=== PATIENT | female | born 1975 | race Caucasian/White ===

== ENCOUNTER → 2018-02-24 | Outpatient (REF) ==
[2014-09-20 09:30] VITALS: BMI 36.5
[~2018-02-24] MED LIST: DIPH0.5D12 IM; IBUP800T37 PO; LEVO137T22 PO; PER PO; PREN-127 PO
[2018-02-24 10:32] LABS: LDL CHOLESTEROL 150 mg/dl
== END ==
DX: Z02.9 Encounter for administrative examinations, unspecified (principal)

== ENCOUNTER → 2018-03-16 | Outpatient (CLI) | payer OTHER ==
[2014-09-20 09:30] VITALS: BMI 36.5
--- NOTE | 2018-03-16 09:40 | RADIOLOGY IMAGING REPORT ---
FACILITY: [facility] - [place], [place] PATIENT NAME: Liliana Odell : 1975 MR: [id number] V: [id number] EXAM DATE: ORDERING PHYSICIAN: MADI RANGEL TECHNOLOGIST: Location: [facility] Patient: Liliana Odell : 1975 Visit/Account:[id number] Date of Sevice: 03/16/2018 Exam type: OB LIMITED History: Follow up pyelectasis, Growth and SUNNY check Comparison: None available at this time. Findings: There is a single fetus in vertex presentation. The placenta is posterior with no evidence of a placenta previa. Amniotic fluid index is 27.1 cm. The MVP is 8.3 cm heart rate 149 bpm. Fluid is identified in the renal pelvic calyceal systems bilaterally. The renal pelvis measures 6.4 mm on the right and 6.1 mm on the left. The biparietal diameter measures 8.03 cm consistent with a gestational age of 32 weeks and two days a nd is in the 45th percentile Head circumference measures 29.03 cm consistent with 32 weeks and zero days and is in the 12th percen tile Abdominal circumference measures 29.2 cm consistent with 33 weeks and two days and is in the 70th per centile Femur length measures 6.5 cm consistent with 33 weeks and four days ends in the 74th percentile Estimated weight is 2109 g +/- 308 g Estimated gestational age: AUA: 32 weeks and six days Estimated gestational age by last menstrual period: 32 weeks and one day. This is in the 69th percen tile IMPRESSION: 1. Single viable fetus in vertex presentation with an estimated gestational age by measurements of 3 2 weeks and six days. Estimated weight 2109 g There is polyhydramnios with an SUNNY of 27.1 cm in MVP 8.3 cm Fluid is identified in the renal pelvic calyceal systems bilaterally. The right renal pelvis measure s 6.4 mm in diameter. The left renal pelvis measures 6.1 mm in diameter. There are no prior studies currently available to me for comparison Report Dictated By: Nisa Arizmendi MD at 03/16/2018 9:21 AM Report E-Signed By: Nisa Arizmendi MD at 03/16/2018 9:35 AM WSN:[email or web address]
== END ==
LOC: RAD 07:56
PROVIDERS: ATTEND Obstetrics & Gynecology
DX: Z02.9 Encounter for administrative examinations, unspecified (principal)
CPT/HCPCS: 76815

== ENCOUNTER → 2018-04-03 | Outpatient (CLI) | payer OTHER ==
[2014-09-20 09:30] VITALS: BMI 36.5
--- NOTE | 2018-04-03 09:22 | RADIOLOGY IMAGING REPORT ---
FACILITY: [facility] [place]IENT NAME: Liliana Odell : 1975 MR: [id number] V: [id number] EXAM DATE: ORDERING PHYSICIAN: MADI RANGEL TECHNOLOGIST: Location: [facility] [place] Patient: Liliana Odell : 1975 Visit/Account:[id number] Date of Sevice: 04/03/2018 Exam type: OB LIMITED History: Polyhydramnios and third trimester, recheck SUNNY Comparison: March 16, 2018. Findings: There is a single fetus in variable presentation however on the provided images the fetus was in ceph alic presentation. . Detailed anatomy was not evaluated. The estimated gestational age by las t menstrual period is 34 weeks and five days The placenta is posterior. heart rate 133 bpm SUNNY measured 26.8 cm. The MVP 7.5 cm There is pyelocaliectasis of the renal collecting systems again noted. The left renal pelvis measure s 7.7 mm in diameter, the right renal pelvis measures 9.5 mm in diameter. Fluid is noted within the bladder. IMPRESSION: 1. Again noted is polyhydramnios with an SUNNY of 26.8 cm in MVP at 7.5 cm There is pelvocaliectasis of the renal collecting systems again noted. The left renal pelvis measure s 7.7 mm in diameter and the right renal pelvis measures 9.5 mm in diameter Report Dictated By: Nisa Arizmendi MD at 04/03/2018 9:04 AM Report E-Signed By: Nisa Arizmendi MD at 04/03/2018 9:18 AM WSN:[email or web address]
== END ==
LOC: US 01:49
PROVIDERS: ATTEND Obstetrics & Gynecology
DX: O40.3XX0 Polyhydramnios, third trimester, not applicable or unspecified (principal)
CPT/HCPCS: 76815

== ENCOUNTER → 2018-04-10 | Outpatient (CLI) | payer OTHER ==
[2014-09-20 09:30] VITALS: BMI 36.5
== END ==
LOC: LAB 08:49
PROVIDERS: ATTEND Obstetrics & Gynecology
DX: O09.523 Supervision of elderly multigravida, third trimester (principal)
CPT/HCPCS: 87081

== ENCOUNTER → 2018-04-17 | Outpatient (CLI) | payer OTHER ==
[2014-09-20 09:30] VITALS: BMI 36.5
--- NOTE | 2018-04-18 01:55 | RADIOLOGY IMAGING REPORT ---
FACILITY: [facility] - [place] PATIENT NAME: Liliana Odell : 1975 MR: [id number] V: [id number] EXAM DATE: ORDERING PHYSICIAN: MADI RANGEL TECHNOLOGIST: Location: [facility] Patient: Liliana Odell : 1975 Visit/Account:[id number] Date of Sevice: 04/17/2018 EXAMINATION: LIMITED OB ULTRASOUND DATE: 04/17/2018 10:56 AM. INDICATION: Evaluate SUNNY and EFW. COMPARISON: 03/04/2018. TECHNIQUE: Grayscale, color Doppler and M-mode ultrasound images of the fetus and maternal organs wer e obtained. FINDINGS: Estimated date of delivery: 05/10/2018. Age by dates: 36 weeks, 5 days Number of fetuses: 1 position: Vertex Placental location: Posterior, no previa. Amniotic fluid volume: The maximum vertical pocket measures 8.4 cm and the SUNNY is 26.9 cm. Biometry as follows: Biparietal diameter: 8.64 cm 34 weeks, 6 days Head circumference: 32.24 cm 36 weeks, 3 days Abdominal circumference: 32.87 cm 36 weeks, 6 days Femur length: 7.12 cm 36 weeks, 4 days Average age by ultrasound: 36 weeks, 2 days Estimated weight: 2940 gm weight percentile: 47th %tile ANATOMY Full anatomic survey was not performed. There is persistent pelvicaliectasis, measuring 8 mm o n the right and 7 mm on the left. heart rate is 133 BPM. IMPRESSION: 1. Single intrauterine gestation with average ultrasound age of 36 weeks 2 days, corresponding to ge stational age by LMP, which is 36 weeks 5 days. Estimated weight is in the 47th %tile. 2. Persistent polyhydramnios. The maximum vertical pocket measures 8.4 cm and the SUNNY is 26.9 cm. 3. Persistent pelvicaliectasis, measuring 8 mm on the right and 7 mm on the left. Report Dictated By: Christiano Torrez MD at 04/18/2018 1:44 AM Report E-Signed By: Christiano Torrez MD at 04/18/2018 1:52 AM WSN:[id number]
== END ==
LOC: RAD 10:46
PROVIDERS: ATTEND Obstetrics & Gynecology
DX: Z02.9 Encounter for administrative examinations, unspecified (principal)

== ENCOUNTER 2018-05-03 05:28 | Inpatient (IN) | payer OTHER ==
[~2018-05-03] VITALS: Ht 154.9 cm; Wt 83.5 kg
[2018-05-03] VITALS (18 sets, daily range): BP systolic 104–141; BP diastolic 52–87; Ht 154.9 cm; Wt 83.5 kg
[2018-05-03] MEDS ORDERED: ceFAZolin(*) 2GM/D5W 50ML 50 ML IVPB ONE (05:29)
[2018-05-03] MEDS ORDERED: METOCLOPRAMIDE 10 MG/2 ML SDV IVP ONE (05:30)
[2018-05-03] MEDS ORDERED: FAMOTIDINE 20 MG/50 ML PREMIX IVPB ONE (05:30)
[2018-05-03] MEDS: LR(*) 1000 ML BAG 1,000 ML IV SCH ×2 (06:14→06:54)
[2018-05-03 06:26] LABS: PLATELET COUNT, AUTOMATED 214 K/uL (150-450)
--- NOTE | 2018-05-03 06:51 | History & Physical ---
History of Present Illness EDC per LMP: May 10, 2018 Estimated Gestational Age: 39 Chief Complaint Scheduled delivery History of Present Illness 43yo at 39w0d presents for scheduled repeat CD. She reports FM. No UCx, VB, LOF. No preeclampsia symptoms. PNC c/b AMA, hx CD, polyhydramnios, pyelectasis and hypothyroid. PNC by [facility]. record reviewed. History Patient's Blood Type: O Positive Rubella Status: Immune Group B Strep Screen: Negative Obstetrical History: Hx CD x 1 Past Medical History: PMH: Hypothyroid PSH: Allergies: Coded Allergies: No Known Drug Allergies (Unverified , 02/14/18) Social History: No T/E/D. . Family History: FH: congestive heart failure MOTHER FH: hypertension FATHER FH: thyroid condition MOTHER Med Rec Home Meds Reported Medications Vits W-Ca,Fe,Fa(<1MG) ( VITAMINS) 1 Each Tablet, 1 EACH PO DAILY, TAB 01/26/18 Levothyroxine Sodium (SYNTHROID) 137 Mcg Tablet, 137 MCG PO QDAY 01/26/18 Review of Systems Constitutional: No Fever Neurological: No Syncope Cardiovascular: No Chest Pain Respiratory: No Shortness of Breath, No Cough Gastrointestinal: No Nausea, No Vomiting, No Diarrhea Genitourinary: No Dysuria Psychiatric: No Depression, No Anxiety Exam General Exam Vital Signs VS reviewed General Apperance: Alert/Awake/No Acute Distress Neuro: No Gross deficits Cardiovascular: Regular Rate and Rhythm Respiratory: No Respiratory Distress, Clear to Auscultation Abdomen: Gravid - Non-Tender Musculoskeletal: No Weakness/Pain Extremities: No Cyanosis,Clubbing or Edema Integumentary: Skin Intact without Lesions or Rash Psychological: Alert & Oriented X3, Appropriate Mood & Affect Fetus FHT Category: I Medical Decision Making Data Points Result Diagram: 05/03/18 0609 Pre-Admit Course Medical Record Review: Yes VTE Prophylasis: Adult Pharmacological Contraindicati: Surgical Contraindication Mechanical Contraindications: Surgical Contraindication Assessment and Plan Problems: (1) History of delivery affecting Assessment & Plan: Plan for repeat CD as scheduled. Discussed R/B/A. Proceed with preop Ancef. (2) Pyelectasis of fetus on ultrasound Assessment & Plan: Notify pediatrics for ultrasound results. (3) Advanced maternal age (AMA), 40 years or greater Assessment & Plan: Negative [id number] and reassuring anatomical ultrasound. (4) Hypothyroidism affecting Assessment & Plan: Continue synthroid. Problem Qualifiers (1) Hypothyroidism affecting : Trimester: third trimester Qualified Codes: O99.283 - Endocrine, nutritional and metabolic diseases complicating , third trimester; E03.9 - Hypothyroidism, unspecified MADI RANGEL MD May 03, 2018 06:51
[2018-05-03] MEDS ORDERED: ONDANSETRON 4 MG/2 ML VIAL ONE (06:57)
[2018-05-03] MEDS ORDERED: KETOROLAC 30 MG/ML VIAL ONE (06:57)
[2018-05-03] MEDS ORDERED: OXYTOCIN 10 UNIT/ML SDV ONE (06:57)
--- NOTE | 2018-05-03 06:57 | Anesthesia OB Pre-Anes Eval ---
History of Present Illness Anesthesia Start Date: May 03, 2018 Anesthesia Start Time: 07:15 OB Anesthesia Diagnosis: repeat c/section Complications: None known EDC: May 10, 2018 : 3 Para: 1 Pain Ratin Result Diagram: 05/03/18 0609 Height (Inches): 61.00 Weight (Pounds): 184 BMI Calculated: 34.76 Past Medical History Medical History: no pertinent history Surgical History: Previous Anesthesia: epidural Attended Childbirth Classes?: No Hx Anesthesia Reactions: No Hx Family Anesthesia Reaction: No Home Meds Reported Medications Vits W-Ca,Fe,Fa(<1MG) ( VITAMINS) 1 Each Tablet, 1 EACH PO DAILY, TAB 01/26/18 Levothyroxine Sodium (SYNTHROID) 137 Mcg Tablet, 137 MCG PO QDAY 01/26/18 Allergies: Coded Allergies: No Known Drug Allergies (Unverified , 02/14/18) Anesthesia OB ROS Neurological: No migraines/headaches, No seizures, No neuropathy ENT: Denies Tooth caps, Denies Loose teeth, Denies Chipped teeth, Denies Dentures, Denies Bridges, Denies Retainers, Denies Veneers, Denies Implants, Denies Tongue ring Pulmonary: No asthma, No smoker (pks/day/yrs) Airway Class: ll Cardiovascular ROS: No edema, No arrhythmia GI ROS: NPO Last Solids Date: May 02, 2018 Last Solids Time: 22:00 ROS: No Herpes, No STD(s), No Liver Disease, No Renal Disease Endocrine ROS: No diabetes, No gestational diabetes, No thyroid disorder Musculoskeletal ROS: No low back pain, No low back injury, No scoliosis ASA Classification: 2 Assessment and Plan Anesthesia Plan: SAB Assessment Past Medical, Surgical, Family and Obstetric Histories reviewed. Please see ACOG chart. Spinal block risks and benefits explained to patient's satisfaction. General anesthesia risks and benefits explained to patient's satisfaction. Questions invited, none asked. Anesthesia Stop Day: May 03, 2018 JAMAR STEIN CRNA May 03, 2018 06:57
[2018-05-03] MEDS ORDERED: fentaNYL CITR 100 MCG/2 ML AMP ONE (06:58)
[2018-05-03] MEDS ORDERED: MORPHINE PF 5 MG/10 ML AMP ONE (06:58)
[2018-05-03] MEDS ORDERED: OXYTOCIN 30 UNIT/LR 500 ML 500 ML IV PRN (08:31)
[2018-05-03] MEDS ORDERED: DLR(*) 1000 ML BAG 1,000 ML IV PRN (08:31)
--- NOTE | 2018-05-03 08:31 | Post Operative Note ---
Operative Note - PROFESSIONAL SERVICES SPECIALIST Operative Day Date: May 03, 2018 Time: 08:30 Physicians Surgeon: Melody Portable Machine Cutter: Ginger Anesthesia: Spinal, Vicky Martin Diagnosis Pre-Op Diagnosis: IUP at 39wks with hx of CD, desire for repeat Post-Op Diagnosis: Same Procedure Findings: Viable male, 0759hrs, 3432gm (7#9oz), Apgars 9/9 Procedure(s): RLTCD Fluids Fluids: IVF: 1800cc UOP: 125cc Estimated Blood Loss: 500cc MADI RANGEL MD May 03, 2018 08:31
[2018-05-03] MEDS ORDERED: IBUP800T37 PO (08:35)
[2018-05-03] MEDS ORDERED: OXYC-865 PO (08:35)
[2018-05-03] MEDS ORDERED: SIMETHICONE 80 MG CHEW CHEW PRN (08:35)
[2018-05-03] MEDS ORDERED: ONDANSETRON 4 MG/2 ML VIAL IV PRN (08:35)
[2018-05-03] MEDS ORDERED: INFLUENZA VIRUS VAC 0.5 ML SYR IM ONE (08:35)
[2018-05-03] MEDS ORDERED: LANOLIN OINT 7 GM TUBE TP PRN (08:35)
[2018-05-03] MEDS ORDERED: PROMETHAZINE 25 MG/ML 1 ML AMP IVP PRN (08:35)
[2018-05-03] MEDS ORDERED: ACETAMINOPHEN 325 MG TAB PO PRN (08:35)
[2018-05-03] MEDS ORDERED: MAGNESIUM HYDROXIDE* 30ML UDCP PO PRN (08:35)
[2018-05-03] MEDS ORDERED: NS 0.9% IRRIGATION 1000ML PLCT IR ONE (08:41)
[2018-05-03] MEDS: FAMOTIDINE 20 MG TAB PO SCH ×2 (09:00→21:22)
[2018-05-03] MEDS: DOCUSATE CALCIUM 240 MG CAP PO SCH ×2 (09:00→21:22)
[2018-05-03] MEDS ORDERED: NALBUPHINE HCL 10 MG/ML AMP IVP PRN (09:10)
[2018-05-03] MEDS ORDERED: NALOXONE HCL 0.4 MG/ML VIAL IV PRN (09:10)
[2018-05-03] MEDS: KETOROLAC 30 MG/ML VIAL IVP SCH ×2 (13:10→19:26)
--- NOTE | 2018-05-03 14:14 | OPERATIVE REPORT 1 ---
EVENT DATE: May 03, 2018 SURGEON: Danielle Oliver MD ENGINEERING SPECIALIST Vicky Martin CRNA ANESTHESIA: Spinal. ETL DATA ARCHITECT: Wilmer Miles DO PREOPERATIVE DIAGNOSIS Intrauterine at 39 weeks presenting for a scheduled repeat delivery due to history of one delivery. POSTOPERATIVE DIAGNOSIS 1. Intrauterine at 39 weeks presenting for a scheduled repeat delivery due to history of x one. 2. Delivery of a viable male at 0759 hours, weighing 3432 grams or 7 pounds 9 ounces with Apgars of 9 at one minute and 9 at five minutes. PROCEDURE Repeat low transverse delivery. IV FLUIDS 1800 mL. URINE OUTPUT 125 mL. ESTIMATED BLOOD LOSS 500 mL. INDICATIONS FOR PROCEDURE This patient is a 43-year-old 3, para 1-0-1-1 who presents for a scheduled delivery at 39 weeks gestation. Please see her history and physical for full details. DESCRIPTION OF PROCEDURE The patient was properly identified and taken to the operating room. She was administered a spinal anesthetic and placed in supine position. A Sanz catheter was then placed, and she was placed in a leftward tilt. Her abdomen was prepped and draped in usual fashion for a delivery. Adequate anesthesia was confirmed prior to the incision. Her prior Pfannenstiel scar was excised with a scalpel and passed off the table. The incision was then carried down to the level of the rectus fascia, which was nicked in the midline. The incision was extended bilaterally in a blunt fashion. The rectus fascia was then from the underlying rectus muscle using a combination of blunt and electrocautery. Once this was achieved up to the infraumbilical plate, the fascia was from the underlying rectus muscle posteriorly as well. The peritoneum was then identified, grasped , then tented. It was entered sharply with Metzenbaum scissors, and the incision was extended in blunt fashion. A bladder blade was then placed, and the vesicouterine peritoneum was taken down with a combination of sharp and blunt manipulation. The bladder was then reflected further off the lower uterine segment. A low transverse incision was then made with a scalpel and extended in a cephalocaudad blunt fashion. The amniotic sac was then ruptured with clear amniotic fluid. The 's vertex was delivered easily through the uterine incision, followed by the anterior shoulder and posterior shoulder. The remainder of the infant was then easily delivered. The had spontaneous cry and spontaneous movement of all four extremities. The oropharynx and nasopharynx were bulb suctioned. The infant was dried and stimulated, and after 35 seconds, the cord was clamped x two and cut, and the infant was passed to the nurse in good condition. Cord blood was then obtained and passed off the table. The placenta was then delivered easily and passed off the table. Pitocin was started in the IV fluid to help firm the uterus. The uterus was then exteriorized and cleared of any remaining clots, debris or products of conception. The uterine incision was then reapproximated in a double layer, the first using an #0-Vicryl in a running locking fashion, the second in an imbricating fashion using an #0-Monocryl suture. Once this was achieved, hemostasis was noted, and the uterus was replaced in the abdominal cavity. The paracolic gutters were cleared of clots and debris. The peritoneum was then reapproximated using a 2-0 Monocryl followed by reapproximation of the rectus muscle. The rectus muscle was copiously irrigated , made hemostatic with electrocautery. The rectus fascia was then closed using an #0-Vicryl, working from one apex to the next. Copious irrigation of subcutaneous tissue was performed, and the subcutaneous tissue was made hemostatic with electrocautery. The subcutaneous tissue was reapproximated using a 2-0 Monocryl in a running non-locking fashion. The skin was then closed with Insorb juan, and a pressure dressing was placed. The patient tolerated this procedure well. All sponge, needle and instrument counts were correct at the end of this procedure. GIULIANA
[2018-05-04] VITALS: BP 132/75
[2018-05-04] MEDS: KETOROLAC 30 MG/ML VIAL IVP SCH (01:28)
[2018-05-04 03:30] VITALS: BP 96/60
[2018-05-04 06:20] LABS: PLATELET COUNT, AUTOMATED 175 K/uL (150-450)
[2018-05-04 07:15] VITALS: BP 111/71
[2018-05-04] MEDS: IBUPROFEN 800 MG TAB PO SCH ×2 (07:17→15:11)
--- NOTE | 2018-05-04 07:49 | OB/GYN Progress Note ---
OB Subjective Progress Notes Subjective Doing well. Pain controlled with oral medications. Tolerating regular diet. Ambulating. Voiding. Normal lochia. No preeclampsia symptoms. OB Objective Physical Exam Vital Signs Date Time Temp Pulse Resp B/P (MAP) Pulse Ox O2 Delivery O2 Flow Rate FiO2 05/04/18 03:30 98.2 68 14 96/60 (72) 05/04/18 03:28 93 Nasal Cannula 0.5 General Appearance: Alert/Awake/No Acute Distress Neurological: No Gross deficits Cardiovascular: Normal Rhythm & Peripheral Pulses, Regular Rate and Rhythm Respiratory: No Respiratory Distress, Clear to Auscultation Abdomen: Soft, Non-Tender, Non-Distended, Fundus Firm Incision: Clean, Dry, Intact, Oozing (very slightly ) Extremities: No Cyanosis,Clubbing or Edema Integumentary: Skin Intact without Lesions or Rash Psychological: Alert & Oriented X3, Appropriate Mood & Affect Result Diagram: 05/04/18 0610 Assessment and Plan Problems: (1) Status post delivery Status: Acute Assessment & Plan: POD#1 s/p RLTCD. Routine orders. Anticipate discharge tomorrow. (2) Pyelectasis of fetus on ultrasound Assessment & Plan: Notify pediatrics for ultrasound results. (3) History of delivery affecting (4) Advanced maternal age (AMA), 40 years or greater (5) Hypothyroidism affecting Assessment & Plan: Continue synthroid. Problem Qualifiers (1) Hypothyroidism affecting : Trimester: third trimester Qualified Codes: O99.283 - Endocrine, nutritional and metabolic diseases complicating , third trimester; E03.9 - Hypothyroidism, unspecified MADI RANGEL MD May 04, 2018 07:49
[2018-05-04] MEDS ORDERED: MEASLES,MUMP,RUBELLA VAC 0.5ML SUBQ ONE (09:00)
[2018-05-04] MEDS ORDERED: DIPHTH/TETANUS/ACEL. PERTUSSIS IM ONLY ONE (09:00)
[2018-05-04] MEDS: FAMOTIDINE 20 MG TAB PO SCH ×2 (09:13→20:50)
[2018-05-04] MEDS: DOCUSATE CALCIUM 240 MG CAP PO SCH ×2 (09:13→21:00)
[2018-05-04 10:52] VITALS: BP 107/62
[2018-05-04 15:10] VITALS: BP 110/58
[2018-05-04 20:15] VITALS: BP 120/64
[2018-05-05] MEDS: IBUPROFEN 800 MG TAB PO SCH ×2 (01:14→09:05)
[2018-05-05 04:15] VITALS: BP 110/70
[2018-05-05 09:00] VITALS: BP 125/74
[2018-05-05] MEDS: FAMOTIDINE 20 MG TAB PO SCH (09:05)
[2018-05-05] MEDS: DOCUSATE CALCIUM 240 MG CAP PO SCH (09:05)
--- NOTE | 2018-05-05 09:42 | OB/GYN Progress Note ---
OB Subjective Progress Notes Subjective Doing well. Pain controlled with oral medications. Tolerating regular diet. Ambulating. Voiding. Normal lochia. No preeclampsia symptoms. OB Objective Physical Exam Vital Signs Date Time Temp Pulse Resp B/P (MAP) Pulse Ox O2 Delivery O2 Flow Rate FiO2 05/05/18 04:15 98.5 69 18 110/70 (83) Room Air 05/04/18 20:15 93 05/04/18 07:15 0.5 General Appearance: Alert/Awake/No Acute Distress Neurological: No Gross deficits Cardiovascular: Normal Rhythm & Peripheral Pulses, Regular Rate and Rhythm Respiratory: No Respiratory Distress, Clear to Auscultation Abdomen: Soft, Non-Tender, Non-Distended, Fundus Firm Incision: Clean, Dry, Intact Extremities: No Cyanosis,Clubbing or Edema Integumentary: Skin Intact without Lesions or Rash Psychological: Alert & Oriented X3, Appropriate Mood & Affect Result Diagram: 05/04/18 0610 Assessment and Plan Problems: (1) Status post delivery Status: Acute Assessment & Plan: POD#2 s/p RLTCD. Meeting milestones. Desires discharge to home today. Discussed routine expectations. Questions answered. Follow up in clinic in 2wks for incision check and 6wks for check. (2) Pyelectasis of fetus on ultrasound Assessment & Plan: Pediatrics notified of ultrasound results. (3) History of delivery affecting (4) Advanced maternal age (AMA), 40 years or greater (5) Hypothyroidism affecting Assessment & Plan: Continue synthroid. Problem Qualifiers (1) Hypothyroidism affecting : Trimester: third trimester Qualified Codes: O99.283 - Endocrine, nutritional and metabolic diseases complicating , third trimester; E03.9 - Hypothyroidism, unspecified MADI RANGEL MD May 05, 2018 09:42
[2018-05-05 11:58] VITALS: BP 125/76
== END 2018-05-05 13:52 | disposition home or self-care (01) | DRG 766 ==
LOC: OB 05:28
PROVIDERS: ADMIT Obstetrics & Gynecology; ATTEND Obstetrics & Gynecology
PROC: 10D00Z1 Extraction of Products of Conception, Low, Open Approach (ICD-10-PCS; principal; 2018-05-03 07:30)
DX: O34.211 Maternal care for low transverse scar from previous cesarean delivery (principal); O99.89 Other specified diseases and conditions complicating pregnancy, childbirth and the puerperium; O99.284 Endocrine, nutritional and metabolic diseases complicating childbirth; E03.9 Hypothyroidism, unspecified; Z3A.39 39 weeks gestation of pregnancy; Z37.0 Single live birth
CPT/HCPCS: 36415; 85025; 86850; 86900; 86901; J0690; J1885; J2270; J2405; J2590; J2765; J3010; J3490; J7120

== ENCOUNTER → 2019-02-16 | Outpatient (REF) ==
[2018-05-03 06:47] VITALS: BMI 34.8
[~2019-02-16] MED LIST changes: -DIPH0.5D12 IM; +DIPH0.5S2 IM; +METO-734 PO; +NORE0.3536 PO; +OXYC-865 PO
[2019-02-16 08:58] LABS: LDL CHOLESTEROL 94 mg/dl
== END ==
DX: Z02.9 Encounter for administrative examinations, unspecified (principal)